=== PATIENT | female | born 2000 | race Two or more races ===

== ENCOUNTER 2024-11-21 04:17 | Emergency (ER) | payer MEDICAID, SELFPAY ==
[2024-11-21 04:17] VITALS: BMI 20.5
[2024-11-21 04:22] VITALS: BP 120/80; PULSE 90; RESP 18; TEMP 37; O2SAT 99
--- NOTE | 2024-11-21 04:24 | PD.EDRME ---
Rapid Medical Screening Exam RME Arrival date/time: 11/21/24 04:17 Chief Complaint: Abdominal Pain Time Seen by Provider: 11/21/24 04:20 Vital signs: Vital Signs Temperature 98.6 F 11/21/24 04:22 Pulse Rate 90 11/21/24 04:22 Respiratory Rate 18 11/21/24 04:22 Blood Pressure 120/80 11/21/24 04:22 Pulse Oximetry (%) 99 11/21/24 04:22 Oxygen Delivery Method Room Air 11/21/24 04:22 RME Narrative: Intermittent epigastric pain and nausea x 1 month
[2024-11-21] MEDS: MG HYD/AL HYD/SIME (Maalox Reg) SUSP 30 ML UDC PO (04:30)
[2024-11-21] MEDS: ONDANSETRON ODT 4 MG TABRAP PO (04:43)
[2024-11-21 04:44] LABS: Collection Type, Urine Clean Catch
[2024-11-21] MEDS: KETOROLAC INJ 60 MG/2 ML VIAL 30 MG IM (04:46)
[2024-11-21] MEDS: FAMOTIDINE 20 MG TABLET PO (04:47)
[2024-11-21 04:50] LABS: Bilirubin,Urine Negative (Negative); Blood,Urine Negative (Negative); Clarity,Urine Clear (Clear/Hazy); Color,Urine Lt-Yellow (Lt Yel-Yel); Glucose, Urine Negative (Negative); Ketones,Urine Negative (Negative); Leukocyte Esterase,Urine Negative (Negative); Nitrite,Urine Negative (Negative); PH,Urine 6.5 (5.0-7.0); Protein,Urine Trace (Neg - Trace); RBC,Urine 2 /hpf (0-3); Specific Gravity,Urine 1.032 (1.001-1.035); Squamous Epithelial Cell,Urine 1 /hpf (0-5); WBC,Urine 1 /hpf (0-5)
[2024-11-21 04:57] LABS: HCG Qualitative,Urine Negative
[2024-11-21 06:24] LABS: Basophils % (Auto) 0 % (0-2.5); Eosinophils % (Auto) 0 % (0-10); Hematocrit 37.7 % (36.0-46.0); Hemoglobin 12.8 g/dL (12.0-16.0); Immature Granulocytes % (Auto) 0 % (0-0); Immature Granulocytes Auto 0.02 Thou/mm3 (0.00-0.00); Lymphocytes # (Auto) 0.9 Thou/mm3 (1.0-4.8); Lymphocytes % (Auto) 13 % (10-50); Mean Corpuscular Hemoglobin 29.8 pg (25.0-35.0); Mean Corpuscular Volume 88 fL (80-100); Monocytes # (Auto) 0.6 Thou/mm3 (0.0-0.8); Monocytes % (Auto) 8 % (0-12); Neutrophils # (Auto) 5.6 Thou/mm3 (1.8-7.7); Neutrophils % (Auto) 79 % (37-80); Nucleated Red Blood Cell % 0 /100 WBC (0); Platelet Count 166 Thou/mm3 (140-440); RDW Standard Deviation 39.8 fL (36.4-46.3); Red Blood Count 4.29 Miln/mm3 (4.00-5.20); White Blood Count 7.1 Thou/mm3 (3.6-11.0)
--- NOTE | 2024-11-21 06:27 | XR_ITS ---
Examination: Abdomen sonogram, Limited Date and time of exam: November 21, 2024 0730 hrs. Indications: Onset epigastric pain beginning one month ago Technique: Real-time landers scale transabdominal sonographic images of the upper abdomen obtained. Findings: Normal gallbladder Normal common bile duct 0.3 cm Pancreatic head 2.3 cm Liver 14 cm no focal liver lesions Normal hepatopedal portal venous flow Patent IVC Impression: Normal examination
[2024-11-21 07:03] LABS: Alanine Aminotransferase 11 U/L (10-49); Albumin, Serum 4.9 gm/dL (3.5-5.0); Alkaline Phosphatase 52 U/L (46-116); Anion Gap 7 (7-16); Aspartate Amino Transferase 13 U/L (0-34); BUN/Creatinine Ratio 24 Ratio (12-20); Bilirubin,Total 0.3 mg/dL (0.3-1.2); Blood Urea Nitrogen 17 mg/dL (9-23); Calcium 9.6 mg/dL (8.3-10.6); Calcium (Corrected) 9.6 mg/dL (8.5-10.1); Carbon Dioxide 25.9 mMol/L (20.0-31.0); Chloride 103 mMol/L (98-107); Creatinine (Component) 0.7 mg/dL (0.6-1.3); Estimated Creatinine Clearance 108.3 mL/min (>60); Globulin 2.5 gm/dL (2.3-3.5); Glucose 102 mg/dL (74-106); Lipase 42 U/L (12-53); Osmolality,Calculated 273 (275-295); Potassium 4.5 mMol/L (3.4-5.1); Sodium 136 mMol/L (136-145); Total Protein 7.4 gm/dL (5.7-8.2); eGFR > 60 See Note
--- NOTE | 2024-11-21 07:51 | PD.EDABDPN ---
ED Abdominal Pain RME/HPI General Chief Complaint: Abdominal Pain Stated complaint: UPPER ABDOMINAL PAIN Time seen by provider: 11/21/24 04:20 Arrival date/time: 11/21/24 04:17 24-year-old female with no significant medical problems other than occasional episodes of constipation presents to the emergency department complaint of abdominal pain patient for symptoms ongoing for greater than 1 month patient reports pain in epigastric region Limitations: no limitations RME / HPI RME / HPI narrative: Intermittent epigastric pain and nausea x 1 month Related Data Previous Rx's ?Medication ?Instructions ?Recorded famotidine 20 mg tablet (Pepcid) 20 mg PO BID 30 days #60 tabs 11/21/24 omeprazole 20 mg capsule,delayed 20 mg PO QDAY 14 days #14 caps 11/21/24 release Allergies Allergy/AdvReac Type Severity Reaction Status Date / Time No Known Allergies Allergy Verified 07/03/19 21:15 Review of Systems Review of Systems Systems Reviewed: All systems reviewed, normal except as documented Constitutional Constitutional: Reports system reviewed and no additional complaints, except as documented, Denies fever(s) and Denies headache(s) Eyes Eyes: Reports system reviewed and no additional complaints, except as documented and Denies blurry vision ENT Ears, Nose, Mouth, and Throat: Reports system reviewed and no additional complaints, except as documented, Denies headache(s), Denies nasal congestion and Denies nasal discharge Cardiovascular Cardiovascular: Reports system reviewed and no additional complaints, except as documented, Denies chest pain and Denies dyspnea Respiratory Respiratory: Reports system reviewed and no additional complaints, except as documented, Denies chest congestion, Denies cough and Denies dyspnea Gastrointestinal Gastrointestinal: Reports system reviewed and no additional complaints, except as documented, Reports abdominal pain, Denies loose stools, Denies nausea and Denies vomiting Integumentary/Breasts Skin/Breast: Reports system reviewed and no additional complaints, except as documented and Denies rash Neurologic Neurologic: Reports system reviewed and no additional complaints, except as documented, Reports as per HPI and Denies headache(s) Past Medical History Past Medical History CARDIAC: Negative Congestive Heart Failure RESPIRATORY: Negative Chronic Obstructive Pulmonary Disease (COPD) GENITOURINARY: Negative Renal Disease ENDOCRINE: Negative Diabetes Mellitus Type 1 or Diabetes Mellitus Type 2 Social History SMOKING STATUS: Never smoker ED Exam General Limitations: Present no limitations General appearance: Present alert and in no apparent distress Head Head exam: Present atraumatic, normocephalic and normal inspection Eye Eye exam: Present normal appearance, PERRL and EOMI; Absent conjunctival injection ENT ENT exam: Present normal exam, normal oropharynx and mucous membranes moist Neck Neck exam: Present normal inspection, full ROM and trachea midline Chest Chest inspection: Present normal inspection and symmetric chest wall rise Respiratory Respiratory exam: Present normal lung sounds bilaterally; Absent respiratory distress Cardiovascular Cardiovascular exam: Present regular rate, normal rhythm and normal heart sounds Abdominal Exam Abdominal exam: Present soft and normal bowel sounds; Absent distention, tenderness, guarding, rebound, rigidity, New's sign or tenderness at McBurney's Point Abdominal tenderness: Absent RUQ or RLQ Extremities Exam Extremities exam: Present normal inspection and full ROM Back Exam Back exam: Present normal inspection and full ROM Neurological Exam Neurological exam: Present alert, oriented X3 and CN II-XII intact Psychiatric Psychiatric exam: Present normal affect and normal mood Skin Skin exam: Present warm, dry, intact and normal color Course Quality Measures none Orders Category Date Time Status US gall bladder Stat Exams 11/21/24 06:27 Completed CBC Stat Lab 11/21/24 06:12 Completed CMP [Comprehensive Metabolic Panel] Stat Lab 11/21/24 06:12 Completed HCG Qualitative,Urine Stat Lab 11/21/24 04:30 Completed Lipase Stat Lab 11/21/24 06:12 Completed UA [Urinalysis] Stat Lab 11/21/24 04:30 Completed Famotidine [Pepcid] Med 11/21/24 04:29 Discontinued 20 mg PO X1 ONE Ketorolac Inj [Toradol Inj] Med 11/21/24 04:29 Discontinued 30 mg IM X1 ONE Ondansetron Odt [Zofran Odt] Med 11/21/24 04:29 Discontinued 4 mg PO X1 ONE mg Hyd/Al Hyd/Osiel Susp [Maalox Susp] Med 11/21/24 04:29 Discontinued 30 ml PO X1 ONE Vital Signs Vital signs: Vital Signs Temperature 98.6 F 11/21/24 04:22 Pulse Rate 90 11/21/24 04:22 Respiratory Rate 18 11/21/24 04:22 Blood Pressure 120/80 11/21/24 04:22 Pulse Oximetry (%) 99 11/21/24 04:22 Oxygen Delivery Method Room Air 11/21/24 04:22 O2 saturation 99% on room air within normal limits Abdominal Pain MDM MDM Narrative MDM Narrative:: 24-year-old female with no significant medical problems other than occasional episodes of constipation presents to the emergency department complaint of abdominal pain patient for symptoms ongoing for greater than 1 month patient reports pain in epigastric region Lab work and ultrasound reviewed and are unremarkable Patient well-appearing patient has soft nontender abdomen no McBurney's point tenderness negative New sign Patient be discharged home with meds instructed to follow-up with PCP for H. pylori testing and GI consultation Patient discharged home in no distress to follow-up with primary care doctor in the next 24 to 48 hours and for any worsening symptoms to return to the ER immediately Patient data External records reviewed:: [facility] previous records Clinical information provided by:: patient Social determinants that could affect healthcare access:: none Patient has the following chronic illnesses:: Constipation How is presenting disease/condition affected by chronic disease/condition?: no chronic disease Evaluation data The following diagnostics were reviewed and interpreted by me:: lab results and radiology exam(s) Lab and/or radiology exams considered but not ordered:: Labs and radiology obtained Interpretation Summary: Reviewed by me Medications / Prescriptions Medications or Prescriptions considered but not ordered:: Given Medication administrations:: Medication Administration History Discontinued Medications Al Hydrox/Mg Hydrox/Simethicone (Mg Hyd/Al Hyd/Osiel (Maalox Reg) Susp 30 Ml Udc) 30 ml PO X1 ONE Stop: 11/21/24 04:30 Last Admin: 11/21/24 04:30 Dose: 30 ml Documented By: Famotidine (Famotidine 20 Mg Tablet) 20 mg PO X1 ONE Stop: 11/21/24 04:30 Last Admin: 11/21/24 04:47 Dose: 20 mg Documented By: SE Ketorolac Tromethamine (Ketorolac Inj 60 Mg/2 Ml Vial) 30 mg IM X1 ONE Stop: 11/21/24 04:30 Last Admin: 11/21/24 04:46 Dose: 30 mg Documented By: SE Ondansetron HCl (Ondansetron Odt 4 Mg Tabrap) 4 mg PO X1 ONE; Protocol Stop: 11/21/24 04:30 Last Admin: 11/21/24 04:43 Dose: 4 mg Documented By: SE Given Consultations Consultation(s) initiated? (list below): No Diagnosis Differential diagnosis abdominal pain: abdominal pain, acute appendicitis, gastroenteritis and pancreatitis Most likely diagnosis given after review of the tests above:: Abdominal pain Admission Indicated Admission indicated?: not indicated Admission Request Was there a request for admission?: No Disposition Plan Disposition Plan: Discharge Discharge Attestation Discharge Attestation: The patient and all family members were given an opportunity to ask questions and understood the discharge instructions. Discharge instructions specifically effects, indications for sooner follow up or return to the emergency department, and the expected course of current diagnosis. Patient condition: Stable Discharge Plan Plan Patient Disposition: HOME (Self Care) Disposition Comment: stable Prescriptions/Referrals Prescriptions/Med Rec: New famotidine [Pepcid] 20 mg tablet 20 mg PO BID 30 Days Qty: 60 0RF omeprazole 20 mg capsule,delayed release(DR/EC) 20 mg PO QDAY 14 Days Qty: 14 0RF Referrals: No Primary/Family,Physician [Primary Care Provider] - 11/23/24 Problem List Clinical Impression: Abdominal pain Patient/Caregiver Discharge Instructions Education Materials: Abdominal Pain Additional Instructions: Please follow up with your primary care doctor in the next 24-48hrs for any worsening symptoms return here immediately Please request H. pylori testing by PCP if your symptoms persist you may need a referral to GI specialist Print Language: Central African Stand Alone Forms: Chari Award Info., Patient Portal Info Letter ORLIN/LEAH Supervising Physician ORLIN/LEAH Supervising Physician: dr ace
== END 2024-11-21 07:57 | disposition home or self-care (01) ==
PROVIDERS: Physician Assistant; Emergency Provider Emergency Medicine
DX: R10.13 Epigastric pain (principal)
CPT/HCPCS: 36415; 76705; 80053; 81001; 81025; 83690; 85025; 96372; 99284; J1885; Q0162; A9270

== ENCOUNTER 2025-11-06 08:49 | Emergency (ER) | payer MEDICAID, SELFPAY ==
[2025-11-06 08:50] VITALS: BMI 21.9
[2025-11-06 08:56] VITALS: BP 113/63; PULSE 101; RESP 19; TEMP 37; O2SAT 98
--- NOTE | 2025-11-06 09:22 | PD.EDALLER ---
ED Allergic Reaction RME/HPI General Chief complaint: Allergic Reaction Stated complaint: ALLERGIC REACTION, REDNESS THROUGHOUT BODY Time Seen by Provider: 11/06/25 08:51 Arrival date/time: 11/06/25 08:49 This is a 24-year-old female that comes into the emergency room with complaints of allergic reaction to her arms her face and her legs. Patient states she had no new food or no new contacts with anything abnormal. Patient denies any shortness of breath or trouble breathing. Patient denies any nausea vomiting diarrhea. Patient denies any fever or chills. Patient just states that she feels itchy. Related Data Previous Rx's ?Medication ?Instructions ?Recorded diphenhydramine HCl 25 mg tablet 50 mg (2 x 25 mg) PO Q8H PRN 11/06/25 allergy symptoms #20 tabs famotidine 20 mg tablet 20 mg PO BID #14 tabs 11/06/25 Allergies Allergy/AdvReac Type Severity Reaction Status Date / Time No Known Allergies Allergy Verified 11/06/25 08:51 Review of Systems Review of Systems Systems Reviewed: All systems reviewed, normal except as documented Past Medical History Past Medical History CARDIAC: Negative Congestive Heart Failure RESPIRATORY: Negative Chronic Obstructive Pulmonary Disease (COPD) GENITOURINARY: Negative Renal Disease ENDOCRINE: Negative Diabetes Mellitus Type 1 or Diabetes Mellitus Type 2 Social History SMOKING STATUS: Never smoker ED Exam Narrative Physical exam: VITAL SIGNS: Reviewed. GENERAL APPEARANCE: Alert and interactive, follows commands, no acute distress HEAD AND FACE: Non-traumatic. ENT: PERRL, conjuctiva pink and clear, eyelid no trauma, Mucous membrane moist. NECK: Supple, nontender, no nuchal rigidity. CHEST: No tenderness, no crepitus, no paradoxical movement, no retractions. LUNGS: breathing even and unlabored HEART: Regular rate, cap refill less than 2 seconds ABDOMEN: Soft, nondistended, no pain to palpation. NEUROLOGICAL: Gross motor function intact sensory function intact, Appropriate for age. MUSCULOSKELETAL: low back nontender, full range of motion. no midline tenderness, no meningismus, no step offs EXTREMITIES: No redness no swelling no skin breakdown on bilateral foot and leg. Distal neurovascular status intact bilateral foot SKIN: Color pink, dry, Patient has erythema to bilateral eyes lids, erythemic bumpy welts/hives to legs arms Course Quality Measures none Orders Category Date Time Status DiphenhydrAMINE [Benadryl] Med 11/06/25 09:12 Discontinued 50 mg PO X1 ONE Famotidine [Pepcid] Med 11/06/25 09:12 Discontinued 20 mg PO X1 ONE Vital Signs Vital signs: Vital Signs Temperature 98.6 F 11/06/25 08:56 Pulse Rate 101 H 11/06/25 08:56 Respiratory Rate 19 11/06/25 08:56 Blood Pressure 113/63 11/06/25 08:56 Pulse Oximetry (%) 98 11/06/25 08:56 Oxygen Delivery Method Room Air 11/06/25 08:56 Allergic Reaction MDM Narrative MDM Narrative:: Rash seems improved with Benadryl and Pepcid. Patient told to take Benadryl and Pepcid for the next few days. Unknown what caused allergic reaction for patient. Patient told to make sure she follows up with her primary doctor in 1 to 2 days. Come back to the emergency room symptoms change or worsen. Dragon dictation: Although this document has been carefully reviewed, there may still be some phonetic and other typographical errors. These errors are purely grammatical due to imperfections in the software program and should not be construed in any way to compromise the substance of the patient's medical care during this visit. Patient data External records reviewed:: [facility] previous records Clinical information provided by:: patient Social determinants that could affect healthcare access:: none Patient has the following chronic illnesses:: None How is presenting disease/condition affected by chronic disease/condition?: no chronic disease Evaluation data The following diagnostics were reviewed and interpreted by me:: other (specify) Lab and/or radiology exams considered but not ordered:: See note Interpretation Summary: See note Medications / Prescriptions Medications or Prescriptions considered but not ordered:: None Medication administrations:: Medication Administration History Discontinued Medications Diphenhydramine HCl (Diphenhydramine 25 Mg Capsule) 50 mg PO X1 ONE Stop: 11/06/25 09:13 Last Admin: 11/06/25 09:24 Dose: 50 mg Documented By: MARBIN Famotidine (Famotidine 20 Mg Tablet) 20 mg PO X1 ONE Stop: 11/06/25 09:13 Last Admin: 11/06/25 09:25 Dose: 20 mg Documented By: MARBIN See [facility] Consultations Consultation(s) initiated? (list below): No Diagnosis Differential Diagnosis allergic reaction: anaphylaxis, allergic reaction, angioedema and contact dermatitis Most likely diagnosis given after review of the tests above:: Allergic reaction Admission Indicated Admission indicated?: not indicated Admission Request Was there a request for admission?: No Disposition Plan Disposition Plan: Discharge Discharge Attestation Discharge Attestation: The patient and all family members were given an opportunity to ask questions and understood the discharge instructions. Discharge instructions specifically effects, indications for sooner follow up or return to the emergency department, and the expected course of current diagnosis. Patient condition: Stable Discharge Plan Plan Patient Disposition: HOME (Self Care) Patient condition on transfer: Stable Prescriptions/Referrals Prescriptions/Med Rec: New famotidine 20 mg tablet 20 mg PO BID Qty: 14 0RF diphenhydramine HCl 25 mg tablet 50 mg PO Q8H PRN (Reason: allergy symptoms) Qty: 20 0RF Referrals: No Primary/Family,Physician [Primary Care Provider] - In 1 week Problem List Clinical Impression: Allergic reaction Patient/Caregiver Discharge Instructions Discharge Activity: activity as tolerated Education Materials: ED Medicine Reaction: Allergic Additional Instructions: Follow up with primary provider in 1-2 days. Come back to ED if symptoms change or worsen Print Language: Amharic Stand Alone Forms: Chari Award Info., Patient Portal Info Letter PA/DOPE WORKER Supervising Physician PA/DOPE WORKER Supervising Physician: donna
[2025-11-06] MEDS: FAMOTIDINE 20 MG TABLET PO (09:25)
== END 2025-11-06 10:55 | disposition home or self-care (01) ==
PROVIDERS: Emergency Provider Nurse Practitioner Family
DX: R21 Rash and other nonspecific skin eruption (principal)
CPT/HCPCS: 99281; A9270